=== PATIENT | male | born 1955 | race Asian ===

== ENCOUNTER 2019-01-26 12:06 | Emergency (ER) | payer BC ==
[~2019-01-26] VITALS: Ht 172.7 cm; Wt 80.7 kg
[2019-01-26 12:15] VITALS: BP 143/93
--- NOTE | 2019-01-26 12:19 | NUR ---
Patient ambulated to bed 11. RN evaluating patient at bedside.
--- NOTE | 2019-01-26 12:30 | NUR ---
PT BIB FAMILY C/O DIZZINESS, FRONTAL AND OCCIPITAL LATIF, SWEATING, CHILLS, AND NAUSEA, AND WEAKNESS X2 DAYS. DENIES DIARRHEA OR FEVER. PT REPORTS DIZZINESS AND NAUSEA WHEN LAYING FLAT AND WHEN WALKING. AAOX4, COOPERATIVE, SPEECH CLEAR, FACIAL SYMMETRY INTACT, GAIT STEADY, ARM GASTROENTEROLOGY NURSE EQUAL/STRONG. VSS. ER TO SEE PT. PMH: [facility]: N/A
[2019-01-26] MEDS ORDERED: NACL 0.9% 1,000 ML IV ONE (13:23)
[2019-01-26] MEDS ORDERED: MECLIZINE 25 MG TAB PO ONE (13:25)
[2019-01-26] MEDS ORDERED: DEXAMETHASONE 10 MG/ML VIAL IVP ONE (13:25)
[2019-01-26] MEDS ORDERED: PROMETHAZINE 25 MG/ML VIAL IM ONE (13:25)
[2019-01-26] MEDS ORDERED: ONDANSETRON 4 MG/2 ML VIAL IVP ONE (13:25)
[2019-01-26] MEDS ORDERED: hydrOXYzine HCL 25 MG TAB PO ONE (13:25)
[2019-01-26] MEDS ORDERED: FAMOTIDINE 20 MG/2 ML VIAL IVP ONE (13:25)
[2019-01-26] MEDS ORDERED: LORazepam 2 MG/ML VIAL IVP ONE (13:25)
--- NOTE | 2019-01-26 13:40 | NUR ---
PT TAKEN TO CT
[2019-01-26 13:50] LABS: BASOPHILS % (AUTO) 0.3 % (0.0-2.0); EOSINOPHILS # (AUTO) 0.3 K/uL (0-0.4); EOSINOPHILS % (AUTO) 2.4 % (0.0-4.0); HEMATOCRIT 42.8 % (36-52); HEMOGLOBIN 14.1 g/dL (12.0-18.0); LYMPHOCYTES # (AUTO) 1.1 K/uL (2.0-11.5); LYMPHOCYTES % (AUTO) 10.1 % (20.5-51.1); MEAN CORPUSCULAR HEMOGLOBIN 29 pg (27-31); MEAN CORPUSCULAR HGB CONC 33 g/dL (33-37); MEAN CORPUSCULAR VOLUME 88.3 fL (80-94); MONOCYTES # (AUTO) 0.6 K/uL (0.8-1.0); MONOCYTES % (AUTO) 5.2 % (1.7-9.3); NEUTROPHILS # (AUTO) 8.9 K/uL (1.8-7.7); PLATELET COUNT (AUTO) 243 K/uL (140-450); RED BLOOD CELL COUNT(AUTO) 4.84 MIL/uL (4.20-6.10); RED CELL DISTRIBUTION WIDTH 13.2 % (11.6-13.7); WHITE BLOOD COUNT (AUTO) 10.9 K/uL (4.8-10.8)
[2019-01-26 14:06] LABS: PROTHROMBIN TIME 9.8 secs (10.8-13.4)
[2019-01-26 14:12] LABS: ALBUMIN 3.6 g/dL (3.4-5.0); ANION GAP 11.7 (8-16); CREATININE 0.9 mg/dL (0.7-1.3); POTASSIUM 3.7 mmol/L (3.5-5.1); TOTAL BILIRUBIN 0.9 mg/dL (0.0-1.0)
[2019-01-26 14:25] LABS: APPEARANCE,URINE CLEAR (CLEAR); BILIRUBIN,URINE NEGATIVE (NEGATIVE); BLOOD, URINE NEGATIVE (NEGATIVE); COLOR,URINE YELLOW (YELLOW); LEUKOCYTE ESTERASE ,URINE NEGATIVE (NEGATIVE); NITRITE, URINE NEGATIVE (NEGATIVE); UGLUCOSE NEGATIVE (NEGATIVE)
[2019-01-26 17:23] VITALS: BP 133/88
--- NOTE | 2019-01-26 17:23 | NUR ---
Patient discharged with v/s stable. Written and verbal after care instructions given and explained. Patient alert, oriented and verbalized understanding of instructions. Ambulatory with steady gait. All questions addressed prior to discharge. ID band removed. Patient advised to follow up with PMD. Rx of antivert given. Patient educated on indication of medication including possible reaction and side effects. Opportunity to ask questions provided and answered.
== END 2019-01-26 17:23 | disposition home or self-care (01) ==
LOC: MED 12:06
DX: H83.03 Labyrinthitis, bilateral (principal); R11.2 Nausea with vomiting, unspecified
CPT/HCPCS: 36415; 70450; 71045; 80053; 81003; 82150; 83690; 84484; 85025; 85610; 85730; 93005; 96361; 96372; 96374; 96375; 99284; J1100; J2060; J2405; J2550; J3490; J7030; J8597